=== PATIENT | female | born 1975 | race African-American/Black ===

== ENCOUNTER 2018-01-24 11:02 | Emergency (ER) | payer BC ==
[~2018-01-24] VITALS: Ht 157.5 cm; Wt 94.0 kg
[~2018-01-24 11:02] MED LIST: ACET325S8 PR
[2018-01-24 11:12] VITALS: BP 181/111; PULSE 110; RESP 18; TEMP 99.5; O2SAT 97
--- NOTE | 2018-01-24 11:32 | PD ---
HPI Chief Complaint: Abdominal Pain Time Seen by Provider: 11:29 Travel History International Travel<30 days: No Contact w/Intl Traveler<30days: No Traveled to known affect area: No History of Present Illness HPI 43-year-old female presents to the emergency department with history sudden onset nausea vomiting yesterday, and now ongoing upper left abdominal discomfort. She states the pain radiates to the back. Patient states she was told she had kidney stones in the past but no history of active kidney stones it was found by accident with previous CT scans. Patient denies fever or chills. Patient denies history of alcohol use. Patient has had some loose stool today, but not a large amount. Patient denies urinary symptoms or vaginal symptoms. She denies chest pain or shortness of breath. Patient denies previous history of pancreatitis. Patient has multiple allergies including aspirin, codeine, and CT dye. PFSH Past Medical History Asthma: Yes Anxiety: Yes Depression: Yes Diminished Hearing: No Gastrointestinal Disorders: Yes (HX GALLSTONES) GERD: Yes Headaches: Yes Kidney Stones: Yes Neurologic: Yes Migraines: Yes Sickle Cell Disease: Yes (TRAIT) Tetanus Vaccination: < 5 Years ?: Not : 8 Para: 2 Miscarriage: 6 Dilation and Curettage (D&C): Yes Tubal Ligation: Yes Past Surgical History Abdominal Surgery: Yes (D&C) Gynecologic Surgery: Yes (D&C) Neurologic Surgery: Yes (FOR [facility] - CHILDHOOD) Social History Alcohol Use: No Tobacco Use: No Substance Use: No Allergies-Medications (Allergen,Severity, Reaction): Coded Allergies: aspirin (Unverified Allergy, Severe, Hives, 01/24/18) codeine (Unverified Allergy, Severe, THROAT SWELLS, 01/24/18) diatrizoate meglumine (Unverified Allergy, Severe, SOB, SWELLING, 01/24/18) gadobenic acid (Unverified Allergy, Severe, SOB, SWELLING, 01/24/18) gadodiamide (Unverified Allergy, Severe, SOB, SWELLING, 01/24/18) gadoteridol (Unverified Allergy, Severe, SOB, SWELLING, 01/24/18) iodixanol (Unverified Allergy, Severe, SOB, SWELLING, 01/24/18) iohexol (Unverified Allergy, Severe, SOB, SWELLING, 01/24/18) shellfish derived (Unverified Allergy, Severe, SWELLING/SOB, 01/24/18) Reported Meds & Prescriptions Reported Meds & Active Scripts Active No Active Prescriptions or Reported Medications Review of Systems Except as stated in HPI: all other systems reviewed are Neg General / Constitutional: No: Fever Eyes: No: Visual changes HENT: No: Headaches Cardiovascular: No: Chest Pain or Discomfort Respiratory: No: Shortness of Breath Gastrointestinal: Positive: Nausea, Vomiting, Diarrhea, Abdominal Pain, Loss of Appetite, No: Hematemesis, Hematochezia, Constipation, Indigestion, Dysphagia Genitourinary: No: Urgency, Frequency, Dysuria, Pelvic Pain, Flank Pain, Discharge, Vaginal Bleeding Musculoskeletal: No: Pain Skin: No Rash Neurologic: No: Weakness Psychiatric: No: Depression Endocrine: No: Polydipsia Hematologic/Lymphatic: No: Easy Bruising Physical Exam Narrative GENERAL: Patient appears ill but not septic SKIN: Warm and dry. Normal color. Normal turgor. No diaphoresis HEAD: Atraumatic. Normocephalic. EYES: Pupils equal and round. No scleral icterus. No injection or drainage. ENT: No nasal bleeding or discharge. Mucous membranes pink and moist. Pharynx is clear. Airways patent. NECK: Trachea midline. Supple and nontender CARDIOVASCULAR: Regular rate and rhythm. RESPIRATORY: No accessory muscle use. Clear to auscultation. Breath sounds equal bilaterally. GASTROINTESTINAL: Abdomen soft, moderate nonspecific left upper quadrant tenderness, nondistended. Negative Gomez sign. Question mild right-sided CVA tenderness with percussion. Hepatic and splenic margins not palpable. MUSCULOSKELETAL: Extremities without clubbing, cyanosis, or edema. No obvious deformities. NEUROLOGICAL: Awake and alert. No obvious cranial nerve deficits. Motor grossly within normal limits. Five out of 5 muscle strength in the arms and legs. Normal speech. PSYCHIATRIC: Appropriate mood and affect; insight and judgment normal. Data Data Last Documented VS Vital Signs Date Time Temp Pulse Resp B/P (MAP) Pulse Ox O2 Delivery O2 Flow Rate FiO2 01/24/18 12:20 99 01/24/18 11:12 99.5 110 18 181/111 (134) Orders Orders Complete Blood Count With Diff (01/24/18 11:41) Comprehensive Metabolic Panel (01/24/18 11:41) Lipase (01/24/18 11:41) Lactic Acid (01/24/18 11:41) Urinalysis - C+S If Indicated (01/24/18 11:41) Ct Abd/Pel W/O Iv Contrast (01/24/18 11:41) Iv Access Insert/Monitor (01/24/18 11:41) Ecg Monitoring (01/24/18 11:41) Oximetry (01/24/18 11:41) Morphine Inj (Morphine Inj) (01/24/18 11:45) Ondansetron Inj (Zofran Inj) (01/24/18 11:45) Sodium Chlor 0.9% 1000 Ml Inj (Ns 1000 M (01/24/18 11:41) Sodium Chloride 0.9% Flush (Ns Flush) (01/24/18 11:45) Ed Urine Pregnancytest Poc (01/24/18 11:41) Labs Laboratory Tests Test 01/24/18 12:10 01/24/18 12:15 White Blood Count 11.5 TH/MM3 Red Blood Count 5.35 MIL/MM3 Hemoglobin 12.3 GM/DL Hematocrit 38.8 % Mean Corpuscular Volume 72.5 FL Mean Corpuscular Hemoglobin 23.0 PG Mean Corpuscular Hemoglobin Concent 31.8 % Red Cell Distribution Width 17.4 % Platelet Count 365 TH/MM3 Mean Platelet Volume 7.2 FL Neutrophils (%) (Auto) 74.7 % Lymphocytes (%) (Auto) 13.0 % Monocytes (%) (Auto) 9.5 % Eosinophils (%) (Auto) 2.4 % Basophils (%) (Auto) 0.4 % Neutrophils # (Auto) 8.6 TH/MM3 Lymphocytes # (Auto) 1.5 TH/MM3 Monocytes # (Auto) 1.1 TH/MM3 Eosinophils # (Auto) 0.3 TH/MM3 Basophils # (Auto) 0.1 TH/MM3 CBC Comment DIFF FINAL Differential Comment Blood Urea Nitrogen 6 MG/DL Creatinine 0.75 MG/DL Random Glucose 94 MG/DL Total Protein 8.1 GM/DL Albumin 3.5 GM/DL Calcium Level 8.7 MG/DL Alkaline Phosphatase 93 U/L Aspartate Amino Transf (AST/SGOT) 15 U/L Alanine Aminotransferase (ALT/SGPT) 15 U/L Total Bilirubin 0.3 MG/DL Sodium Level 140 MEQ/L Potassium Level 3.2 MEQ/L Chloride Level 104 MEQ/L Carbon Dioxide Level 28.5 MEQ/L Anion Gap 8 MEQ/L Estimat Glomerular Filtration Rate 101 ML/MIN Lactic Acid Level 1.0 mmol/L Lipase 133 U/L Urine Color YELLOW Urine Turbidity CLEAR Urine pH 7.0 Urine Specific [place] 1.016 Urine Protein 30 mg/dL Urine Glucose (UA) NEG mg/dL Urine Ketones NEG mg/dL Urine Occult Blood TRACE Urine Nitrite NEG Urine Bilirubin NEG Urine Urobilinogen LESS THAN 2.0 MG/DL Urine Leukocyte Esterase NEG Urine RBC 1 /hpf Urine WBC LESS THAN 1 /hpf Urine Squamous Epithelial Cells 2 /hpf Microscopic Urinalysis Comment CULT NOT INDICATED MDM Medical Decision Making Medical Screen Exam Complete: Yes Emergency Medical Condition: Yes Differential Diagnosis Gastroenteritis. Gallbladder disease. Biliary colic. Renal colic. Pancreatitis. Narrative Course Patient is medically stable at time of exam. Labs ordered including CBC, CMP, lactic acid, lipase, and urinalysis, as well as urine . IV access is obtained patient was given 2 mg morphine IV, 4 mg Zofran IV, and 1000 mL's normal saline bolus. CT of the abdomen and pelvis without contrast is ordered due to her allergies. CBC shows leukocytosis of 11.5, with 74.7% neutrophils. Chemistries unremarkable except for slightly low potassium of 3.2. Lactic acid is normal at 1.0. Lipase is normal at 133. LFTs are normal. Urinalysis shows trace of protein at 30. A trace occult blood. No signs of infection. CT was unremarkable. Per radiologist. Patient is felt to have viral gastroenteritis. Patient will be treated with Zofran 4 mg every 6 hours as needed nausea and vomiting. 20. Patient also given Bentyl 10 mg every 6 hours as needed #20. Patient is to rest, push fluids, take Tylenol ibuprofen as needed and follow-up if symptoms worsen as needed. Work note is given. Diagnosis Primary Impression: Viral gastroenteritis Patient Instructions: Acute Diarrhea (ED), Acute Nausea and Vomiting (ED), General Instructions Departure Forms: Work Release Enter return to work date: Feb 24, 2018 Additional Instructions: CBC shows leukocytosis of 11.5, with 74.7% neutrophils. Chemistries unremarkable except for slightly low potassium of 3.2. Lactic acid is normal at 1.0. Lipase is normal at 133. LFTs are normal. Urinalysis shows trace of protein at 30. A trace occult blood. No signs of infection. CT was unremarkable. Per radiologist. Patient is felt to have viral gastroenteritis. Patient will be treated with Zofran 4 mg every 6 hours as needed nausea and vomiting. 20. Patient also given Bentyl 10 mg every 6 hours as needed #20. Patient is to rest, push fluids, take Tylenol ibuprofen as needed and follow-up if symptoms worsen as needed. Work note is given. Med/Other Pt SpecificInfo: Prescription(s) given Scripts No Active Prescriptions or Reported Meds Disposition: 01 DISCHARGE HOME Condition: Stable Azar Myers Jan 24, 2018 11:32
[2018-01-24] MEDS ORDERED: SODIUM CHLOR 0.9% 1000 ML INJ 1,000 ML IV SCH (11:41)
[2018-01-24] MEDS ORDERED: MORPHINE SULFATE 4 MG/ML INJ IV PUSH ONE (11:45)
[2018-01-24] MEDS ORDERED: ONDANSETRON HCL 4 MG/2 ML VIAL IVP ONE (11:45)
[2018-01-24] MEDS ORDERED: SODIUM CHLORIDE 0.9% FLUSH 10 ML FLUSH IV FLUSH PRN (11:45)
[2018-01-24 12:20] VITALS: O2SAT 99
[2018-01-24 12:24] LABS: AUTOMATED NEUTROPHIL # 8.6 TH/MM3 (1.8-7.7); BASOPHIL # 0.1 TH/MM3 (0-0.2); BASOPHIL % 0.4 % (0.0-2.0); EOSINOPHIL # 0.3 TH/MM3 (0-0.4); EOSINOPHIL % 2.4 % (0.0-4.0); HEMATOCRIT 38.8 % (35.0-46.0); HEMOGLOBIN 12.3 GM/DL (11.6-15.3); LYMPHOCYTE # 1.5 TH/MM3 (1.0-4.8); MEAN CELL VOLUME 72.5 FL (80.0-100.0); MEAN CORPUSCULAR HGB CONC 31.8 % (32.0-36.0); MEAN PLATELET VOLUME 7.2 FL (7.0-11.0); MONO % 9.5 % (0.0-8.0); MONOCYTE # 1.1 TH/MM3 (0-0.9); NEUT % 74.7 % (16.0-70.0); PLATELET COUNT 365 TH/MM3 (150-450); RED BLOOD COUNT 5.35 MIL/MM3 (4.00-5.30); RED CELL DISTRIBUTION WIDTH 17.4 % (11.6-17.2); WHITE BLOOD COUNT 11.5 TH/MM3 (4.0-11.0)
[2018-01-24 12:42] LABS: ALBUMIN 3.5 GM/DL (3.4-5.0); AST (GOT) 15 U/L (15-37); BICARBONATE 28.5 MEQ/L (21.0-32.0); BLOOD UREA NITROGEN 6 MG/DL (7-18); CALCIUM 8.7 MG/DL (8.5-10.1); CHLORIDE 104 MEQ/L (98-107); CREATININE 0.75 MG/DL (0.50-1.00); GLOMERULAR FILTRATION RATE 101 ML/MIN (>89); GLUCOSE,RANDOM 94 MG/DL (74-106); SODIUM (NA) 140 MEQ/L (136-145)
[2018-01-24 12:45] LABS: ALKALINE PHOSPHATASE 93 U/L (45-117); ALT (GPT) 15 U/L (10-53); TOTAL BILIRUBIN ADULT 0.3 MG/DL (0.2-1.0); TOTAL PROTEIN 8.1 GM/DL (6.4-8.2)
[2018-01-24 12:54] LABS: BILIRUBIN, URINE NEG (NEG); BLOOD, URINE TRACE (NEG); GLUCOSE,URINE NEG (NEG); KETONE, URINE NEG (NEG); NITRITE,URINE NEG (NEG); SQUAMOUS EPITHELIAL CELL URINE 2 /hpf (0-5); URINE COLOR YELLOW (YELLW/STRAW); URINE LEUKOCYTE ESTERASE NEG (NEG)
--- NOTE | 2018-01-24 13:30 | RADRPT ---
EXAM DATE/TIME: 01/24/2018 12:37 [facility] COMPARISON: CT ABDOMEN & PELVIS W/O CONTRAST, March 04, 2016, 0:44. INDICATIONS : Lower mid abdomen pain that radiates to back ORAL CONTRAST: No oral contrast ingested. RADIATION DOSE: 10.32 CTDIvol (mGy) MEDICAL HISTORY : Hypertension. Renal calculi. SURGICAL HISTORY : Tubal ligation. ENCOUNTER: Initial ACUITY: 1 day PAIN SCALE: 8/10 LOCATION: Abdomen TECHNIQUE: Volumetric scanning of the abdomen and pelvis was performed. Using automated exposure control and ad justment of the mA and/or kV according to patient size, radiation dose was kept as low as reasonably achievable to obtain optimal diagnostic quality images. DICOM format image data is available electro nically for review and comparison. FINDINGS: LOWER LUNGS: The visualized lower lungs are clear. LIVER: Mild low density without lesion. There is no dilation of the biliary tree. No calcified gallstones. SPLEEN: Normal size without lesion. PANCREAS: Within normal limits. KIDNEYS: Normal in size and shape. There is no mass, stone, or hydronephrosis. ADRENAL GLANDS: Within normal limits. VASCULAR: There is no aortic aneurysm. BOWEL/MESENTERY: The stomach, small bowel, and colon demonstrate no acute abnormality. There is no free intraperitone al air or fluid. ABDOMINAL WALL: Within normal limits. RETROPERITONEUM: There is no lymphadenopathy. BLADDER: No wall thickening or mass. REPRODUCTIVE: Within normal limits. INGUINAL: There is no lymphadenopathy or hernia. MUSCULOSKELETAL: No acute abnormality. CONCLUSION: 1. No abnormality is identified to explain the clinical symptoms. No renal stones are present. 2. Mild hepatic steatosis. Soy Rader MD on January 24, 2018 at 13:18 Board Certified Radiologist. This report was verified electronically.
[2018-01-24] MEDS ORDERED: ZOFR4TAB PO (13:52)
[2018-01-24] MEDS ORDERED: DICY10 PO (13:52)
[2018-01-24] MEDS ORDERED: DICYCLOMINE HCL 20 MG/2 ML VIAL IM ONE (14:00)
== END 2018-01-24 14:30 | disposition home or self-care (01) ==
LOC: NEPD 11:02
DX: A08.4 Viral intestinal infection, unspecified (principal); J45.909 Unspecified asthma, uncomplicated; F32.9 Major depressive disorder, single episode, unspecified; Z88.8 Allergy status to other drugs, medicaments and biological substances; Z88.6 Allergy status to analgesic agent; Z88.5 Allergy status to narcotic agent; Z91.013 Allergy to seafood
CPT/HCPCS: 74176; 80053; 81001; 83605; 83690; 84703; 85025; 96361; 96372; 96374; 96375; 99284; J0500; J2270; J2405; J7030